=== PATIENT | male | born 1990 | race Caucasian/White ===

== ENCOUNTER 2022-07-06 17:37 | Emergency (ER) | payer OTHER ==
[~2022-07-06] VITALS: Ht 177.8 cm; Wt 88.3 kg
[2022-07-06 18:06] VITALS: BP 139/80
[2022-07-06] MEDS ORDERED: INDERAL LA60 M1 PO (18:08)
[2022-07-06 18:15] VITALS: BP 121/80
[2022-07-06 18:30] VITALS: BP 126/80
[2022-07-06] MEDS ORDERED: VOLTAREN75 MG PO (19:21)
[2022-07-06 19:30] VITALS: BP 126/80
== END 2022-07-06 19:30 | disposition home or self-care (01) | DRG 645 ==
LOC: ED 17:37
DX: E05.00 Thyrotoxicosis with diffuse goiter without thyrotoxic crisis or storm (principal); M79.661 Pain in right lower leg; Z86.711 Personal history of pulmonary embolism